=== PATIENT | female | born 1945 | race Caucasian/White ===

== ENCOUNTER 2019-07-16 07:37 | Outpatient (CLI) | payer MEDICARE, OTHER | END 2019-07-16 23:59 | disposition home or self-care (01) | LOC: CFH 07:37 | PROVIDERS: ATTEND Internal Medicine Cardiovascular Disease | DX: I08.8 Other rheumatic multiple valve diseases (principal); I25.9 Chronic ischemic heart disease, unspecified; I49.3 Ventricular premature depolarization; I10 Essential (primary) hypertension | CPT/HCPCS: 78452; 93017; 93306; A9502 ==